=== PATIENT | male | born 1975 | race Caucasian/White ===

== ENCOUNTER → 2018-08-17 | Outpatient (CLI) | payer OTHER ==
[2017-12-02 11:00] VITALS: BP 115/73
[~2018-08-17] MED LIST: BRIM5DRO4 OP; DORZ10DR7 EACHEYE
--- NOTE | 2018-08-17 12:16 | KCIC ---
EXAM: MRI RIGHT KNEE DATE: 08/17/2018 8:45 AM CLINICAL INDICATION: Right knee stiffness COMPARISON: Knee radiographs 11/21/2017 TECHNIQUE: Multiplanar multisequence MR imaging of the right knee was performed without IV contrast. FINDINGS: Trace right knee joint effusion. No Hayes's cyst. Full-thickness chondral defect of the weightbearing surface of the lateral tibial plateau measures 1.5 x 0.4 cm in AP by transverse dimension. Associated full-thickness cartilage defect of the medial femoral condyle measures 6 mm in transverse dimension. Associated subchondral edema within the tibia and femur are seen. Intermittent chondral thinning and fissuring of the patella with regions of subchondral edema, particularly inferiorly. ACL and PCL are intact. The MCL, fibular collateral ligament, biceps femoris and IT band are intact. There is increased signal and thickening of the popliteus tendon at the attachment likely insertional tendinopathy. Extensor mechanism is intact. Borderline lateral patellar tracking. Medial meniscus: Oblique tear of the posterior horn of the medial meniscus is seen. There is also a near full-thickness radial component at the posterior horn-body junction. Lateral meniscus: Blunting of the posterior horn-root of the lateral meniscus likely short segment radial tear. Subchondral marrow edema in regions of chondromalacia as above. IMPRESSION: 1. Complex tear medial meniscus with oblique tear posterior horn and radial tear posterior horn and body. 2. Short segment radial tear at the posterior horn to the root of the lateral meniscus. 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 3. Increased signal and thickening of the popliteus tendon at the attachment, moderate insertional tendinosis Electronically signed by: Samy Reveles MD (08/17/2018 12:12 PM) [id number]
== END | disposition home or self-care (01) ==
LOC: KCIC MRI 08:33
PROVIDERS: ATTEND Orthopaedic Surgery
DX: S83.241A Other tear of medial meniscus, current injury, right knee, initial encounter (principal); M17.11 Unilateral primary osteoarthritis, right knee; M22.41 Chondromalacia patellae, right knee; R60.0 Localized edema; D63.8 Anemia in other chronic diseases classified elsewhere; Z88.0 Allergy status to penicillin; X58.XXXA Exposure to other specified factors, initial encounter; Y93.89 Activity, other specified; Y92.89 Other specified places as the place of occurrence of the external cause; Y99.8 Other external cause status
CPT/HCPCS: 73721